=== PATIENT | male | born 1945 | race African-American/Black ===

== ENCOUNTER 2018-03-23 03:59 | Inpatient (IN) | payer MEDICARE ==
[2018-03-18 10:20] VITALS: BP 132/92
[2018-03-18 11:56] LABS: BASO % 0.4 % (0.0-1.0); EOS # 0.1 10*3/uL (0.0-0.4); EOS % 1.1 % (1.0-4.0); HEMATOCRIT 45.5 % (42.0-52.0); HEMOGLOBIN 15.7 g/dl (14.0-18.0); LYMPH # 1.3 10*3/uL (1.3-4.4); MEAN CELL VOLUME 104.1 fl (80.0-94.0); MEAN CORPUSCULAR HGB 35.9 pg (27.0-31.0); MEAN CORPUSCULAR HGB CONC 34.5 g/dl (33.0-37.0); MEAN PLATELET VOLUME 11.2 fl (9.6-12.3); MONO # 0.4 10*3/uL (0.1-1.0); MONO % 9.1 % (3.0-9.0); NEUT # 2.9 10*3/uL (2.3-7.9); PLATELET COUNT AUTOMATED 121 10*3/uL (130-400); RED BLOOD COUNT 4.37 10*6/uL (4.50-5.90); RED CELL DISTRI WIDTH 12.9 % (0-14.5); WHITE BLOOD COUNT 4.7 10*3/uL (4.8-10.8)
[2018-03-18 12:10] LABS: BUN 14 mg/dl (7-24); CHLORIDE 106 mmol/L (98-107); CREATININE 1.05 mg/dL (0.70-1.30); SODIUM 142 mmol/L (136-145)
[2018-03-18 12:16] LABS: ACT PARTIAL THROMBO TIME 31.4 SECONDS (20.8-31.5); INTERNATIONAL NORM RATIO 1.1 (2.0-3.5)
[2018-03-18 15:45] VITALS: BP 105/66
[2018-03-23] VITALS (29 sets, daily range): BP systolic 66–153; BP diastolic 43–105
[~2018-03-23] VITALS: Ht 172.7 cm; Wt 97.0 kg
--- NOTE | ~2018-03-23 | PR ---
[place], [place] PROGRESS NOTE NAME: [id number] UNIT #: [id number] ROOM: 412 DOCTOR: RAMÍREZ ARAUJO MD,DIMITRI BIRTHDATE: [birth year] DOS: 03/28/2018 SUBJECTIVE: The patient was doing well from Pulmonary standpoint, has been noted with abdominal problem and constipation. The x-ray of the abdomen just to determine finding for the patient consistent with ileus. He has not been noted symptoms of fever or chills, coughing or sputum expectoration. OBJECTIVE: VITAL SIGNS: Low-grade fever noted for the patient as 100.5 degree Fahrenheit. Respiratory rate range between 18-20, heart rate 113-108, blood pressure is 121/70-137/74. Pulse oxygen saturation patient recorded as 99% saturation at rest on room air. HEENT: Examination shows head was atraumatic. Eyes nonicterus. NECK: Supple. CARDIOVASCULAR: S1, S2 is audible. LUNGS: The patient was noted without any wheeze or crackles. Moderate obesity. Bowel sounds present. EXTREMITIES: Without any acute edema. IMPRESSION: The patient with ileus with the resolution of the acute respiratory failure progressively, chronic obesity and other medical illnesses. PLAN OF MANAGEMENT: No change in Pulmonary standpoint. The patient continued to do very well at this time. The atrial fibrillation continue to be managed with adjustment in medication per Cardiology Services. Supportive care therapy, plan and management. Ambulation would be encouraged for this patient with physical therapy after the current surgery of the right foot. DIMITRI ELMORE MD CM:PNTRANS [id number] DIMITRI ARAUJO MD 04/07/18 1651 interface
--- NOTE | ~2018-03-23 | CON ---
[place], [place] REPORT OF CONSULTATION NAME: CARLOS LEMOS LOCATED WITHIN [facility] #: [id number] UNIT #: [id number] ROOM: 412 DOCTOR: RAMÍREZ ARAUJO MD,DIMITRI BIRTHDATE: [birth year] DOS: 03/24/2018 PULMONARY CONSULTATION, EVALUATION, MANAGEMENT CONSULTATION REQUESTED BY: Hospitalist services for assessment of acute postoperative hypoxic respiratory failure. REASON FOR CONSULTATION: Pulmonary Critical Care evaluation and management. HISTORY OF PRESENT ILLNESS: The patient was brought to the hospital as an outpatient for the surgical reconstruction of his right foot. The patient was noted significant blood loss. The patient also became hypotensive. Initially, he was treated with LMA, was later intubated and continued to be on the mechanical ventilator. Blood loss was estimated about 900 mL approximately per surgery report. The surgery was completed, otherwise uneventfully. The patient was continued to be on the mechanical ventilator and transferred to Intensive Care Unit, 50% oxygen supplementation with motor mechanical ventilation that were changed for this yesterday by me to assist control, volume control, mechanical ventilation that was continued with oxygen supplementation 40%. The patient has been noted awake at this time receiving Diprivan low dose of 10 mcg per kilogram, body weight. He easily following vocal commands. The patient has any line noted in place in the hypotension. The patient seemed to be resolved with the resuscitative efforts. He has not been noting any excessive secretion production formation from the endotracheal tube and has not been reported any respiratory complication while on mechanical ventilation. Since after surgery and admission to the Intensive Care Unit per nursing. The patient was also noted atrial fibrillation with rapid ventricular response, which has been managed by the Cardiology Services. REVIEW OF SYSTEMS: Could not be completed since the patient is intubated, noted on the mechanical ventilator. PAST MEDICAL HISTORY: Reported: 1. Atrial fibrillation, permanent, longstanding. 2. Type 2 diabetes mellitus. 3. Essential hypertension. 4. Moderate obesity. SOCIAL HISTORY: Reported as the patient was living at home noted with history of drinking of vodka daily. Exact quantity was unknown. Tobacco use was noted in the past, reported a light smoker, smoking a cigarette, but has not been smoking cigarettes at this present time. The tobacco cessation reported several years ago. PAST SURGICAL HISTORY: 1. Noted as amputation of the toe. 2. Pacemaker insertion. FAMILY HISTORY: Both parents , complications of cancer but details were unknown. [place], [place] REPORT OF CONSULTATION NAME: [facility]: [id number] UNIT #: [id number] ROOM: 412 DOCTOR: RAMÍREZ ARAUJO MD,DIMITRI BIRTHDATE: [birth year] MEDICATIONS: From home were listed use of aspirin, folic acid, hydrochlorothiazide, latanoprost eyedrops, Prinivil, metoprolol tartrate, rather succinate, multivitamin, Xarelto 20 mg daily, simvastatin, Aldactone, and thiamine. DRUG ALLERGIES: Noted as no known drug allergies. PHYSICAL EXAMINATION: GENERAL: This is a 73-year-old male patient who has been currently noted to be awake and alert, on the mechanical ventilator in spite of low dose sedation. Following vocal commands. VITAL SIGNS: Height of 5 feet 8 inches, weight of 213 pounds, BMI 32.5. Vital signs which has been recorded showed the temperature noted as normal. Blood pressure noted lowest of 66/43 yesterday, gradual improvement in the hypotension noted. Blood pressure this morning at 8 o'clock noted 127/75. Atrial fibrillation ranging between 89-107. The intake and output in the last 24 hour, intake of 1290, output 1275 mL. Urine output noted area 50 mL. Pulse oxygen saturation noted as 95% on 40% oxygen supplementation. HEAD, EYES, EARS, NOSE, AND THROAT: Chronic obesity. NECK: Supple and obese. CARDIOVASCULAR SYSTEM: S1, S2 is audible. LUNGS: Noted without any wheezing or crackles at the present time. Breaths are noted mildly diminished bilaterally. ABDOMEN: Soft and obese. EXTREMITIES: Without any edema. Currently noted with a large dressing right foot post-surgery. CENTRAL NERVOUS SYSTEM: Does not appear to have any focal deficit. The patient noted awake, follows vocal commands and can move the extremities. MUSCULOSKELETAL: Without any acute deformities unless otherwise listed. VISIBLE SKIN: No lesions or rashes. LABORATORY AND DIAGNOSTIC DATA: CBC outpatient on 03/18/2018, hemoglobin 15, hematocrit of 45. WBC count was noted decreased 4.7 with platelet count mildly low at 4.5 as well. CBC that was done this morning, WBC count was 11.1, hemoglobin 11.6, hematocrit 35.3, platelet count 114,000. BMP that was noted, glucose 148, BUN and creatinine was normal. Calcium reported as low, which is not corrected with the albumin. The arterial blood gas yesterday 1555, however, pH of 7.33, pCO2 of 33, pO2 of 30, 100% oxygen supplementation at that time. The arterial blood gas that was done this morning assist control, volume control, mechanical ventilation with 40% oxygen, pH of 7.37, pCO2 of 31.6, pO2 of 131. Chest x-ray that was done on this admission was reviewed endotracheal tube noted to yesterday in the appropriate position at 4 cm above the lashon level. NG tube were noted in place. The pacemaker noted in place on the left chest as well. Mild elevation of left hemidiaphragm noted discoid atelectasis. There were no pleural effusions. IMPRESSION: 1. The patient is status post surgical intervention with significant volume loss and hypertension resulting in acute postoperative hypoxic respiratory [place], [place] REPORT OF CONSULTATION NAME: CARLOS LEMOS UNIT #: [id number] ROOM: 412 DOCTOR: DIMITRI CROWLEY MD BIRTHDATE: [birth year] failure for nonthoracic surgery. 2. History of nicotine abuse in the past, but there was no diagnosis of COPD and others known previously. 3. Leukopenia. Thrombocytopenia, most likely related to chronic alcohol use. 4. History of chronic alcohol dependence in the form of vodka, however, details were missing at this time. 5. Moderate obesity as well. 6. Atrial fibrillation with rapid ventricular response as well with the chronic anticoagulation, Xarelto in the past, which has been currently noted on hold. PLAN OF MANAGEMENT: The patient has been started on intravenous esmolol drip, controlled tachycardia and an IV heparin therapeutic dose that will be continued. The ventilator bundle management will be started with Protonix. The patient required long-term rather mechanical ventilation more than 48 hours, which I do not expect that. The patient has been started on the CPAP of 5, pressure support of 10 with complete. Discontinue sedation. The current motor mechanical ventilation will continue for about an hour. Arterial blood gases done and potential liberation from mechanical ventilation would occur following that. Continuation of the other plan of management. Monitor hemoglobin and hematocrit. There was no need of blood transfusions. Maximize the management of atrial fibrillation with a current medical management. Monitor for any abnormal bleeding and thrombocytopenia. The patient has been noted thrombocytopenia related to most likely underlying liver disease, which need to be monitored, but there is no intervention would be necessary at this time except close monitoring. Supportive therapy plan and management, care plan of treatment as well. Other additional treatment changes will be made based on progression of his illness. Pulmonary Critical Care Time for this patient was 35 Minutes. Thank you for allowing me to participate in the care of this patient. DIMITRI ELMORE MD CM:CONSTR:REPORT OF CONSULTATION 1115 04/15/18 0934 interface
--- NOTE | ~2018-03-23 | WRIGHTHP ---
[place], [place] PATIENT HISTORY AND PHYSICAL EXAM NAME: CARLOS LEMOS [facility] #: [id number] UNIT #: [id number] ROOM: [facility] DOCTOR: DISHA ZABALA DPM BIRTHDATE: [birth year] DOS: 03/23/2018 OPERATIVE REPORT SURGEON: Disha Zabala DPM ASSISTANTS: Dr. Catalino Wade, Fellow; Dr. Karley Aceves, PGY3; Andrew Hagan, PGY1. PREOPERATIVE DIAGNOSES: 1. Ankle joint contracture. 2. Equinus. 3. Calcaneal valgus. 4. Posterior tibial tendon dysfunction. 5. Unstable midtarsal joint. 6. Osteoarthritis of the midfoot. 7. Talonavicular joint subluxation, dislocation. 8. Hallux valgus deformity. All on the right. POSTOPERATIVE DIAGNOSES: 1. Ankle joint contracture. 2. Equinus. 3. Calcaneal valgus. 4. Posterior tibial tendon dysfunction. 5. Unstable midtarsal joint. 6. Osteoarthritis of the midfoot. 7. Talonavicular joint subluxation, dislocation. 8. Hallux valgus deformity. All on the right. PROCEDURE: 1. Gastrocnemius recession. 2. Percutaneous calcaneal displacement osteotomy slid medially. 3. Ledezma calcaneal lengthening osteotomy. 4. Talonavicular joint fusion. 5. Navicular cuneiform joint fusion. 6. Lapidus bunionectomy of the right foot. PROCEDURE IN DETAIL: The patient was seen in preop holding area and appropriate site marking was performed. He concurred with the preoperative management as well as the site marking and agreed with the treatment protocol. He was brought in the OR and placed on a well-padded OR table. Prior to this, he was given a block by Anesthesia in the preop holding area. Once he was on the OR table, his right leg was prepped and draped in sterile fashion, midthigh tourniquet inflated to 250 mmHg. Appropriate time-out was performed and everybody in the OR concurred. Anesthesia with achieved in the operating room. A time-out was performed in the operating room and everybody concurred. At this point in time, the right leg was prepped in the usual sterile fashion. [place], [place] PATIENT HISTORY AND PHYSICAL EXAM NAME: CARLOS LEMOS [facility] #: [id number] UNIT #: [id number] ROOM: [facility] DOCTOR: DISHA ZABALA DPM BIRTHDATE: [birth year] PROCEDURE: 1. GASTROCNEMIUS RECESSION: Attention was directed to the medial aspect of the posterior muscle group where an incision was made over the gastroc aponeurosis. This was deepened in the same plane using sharp and blunt dissection avoiding the neurovascular structures, getting down to the deep tissue. At this time, all of the soft tissues were retracted. Sural nerve was retracted and only the gastroc aponeurosis identified. At this time, a Delbert procedure was performed with increased range of motion of the ankle joint. Deep tissues were closed with 0 Vicryl and skin was closed with 2-0 nylon. 2. PERCUTANEOUS CALCANEAL DISPLACEMENT OSTEOTOMY, RIGHT: A small stab incision made at the inferior medial border of the calcaneus and a blunt dissection performed subperiosteal, subfascial along the medial wall of the calcaneus underneath the neurovascular structures deep and at this point and the superior medial border of the calcaneus. A stab incision was made and a from superior medial to inferior medial. Next, a straight hemostat was used on the superior aspect of the calcaneus directed across superior aspect of the calcaneus and anterior to Achilles tendon and posterior neurovascular bundle, tented the skin laterally avoiding the sural nerve and the peroneal tendon. The stab incision was made. A straight hemostat was retracted out of the medial aspect and was inserted from lateral to medial. At this point in time, the hemostat grabbed the Gigli saw from the superior medial and directed across superolaterally. Next, a stab incision was made adjacent to the inferior medial just about the inferior border of the calcaneus and at this time, the Gigli saw was retrieved from this anterior lateral to the superior lateral and this was pulled through subfascial dissection. Next, under fluoroscopy guidance, alignment of the Gigli saw was made and a percutaneous calcaneal osteotomy was made. The wires were cut and at this point in time, the posterior tuber was slid medially approximately 1 cm, so temporarily fixated with large guidewires and this was fixated with a [place] 6.5 partially threaded screw with good compression across the superior aspect of the calcaneal osteotomy. Next, a guidewire was put into the Ledezma site. This was retracted posteriorly approximately 1.5 cm proximal to the calcaneocuboid joint. At this time, an incision was made incision deepened in the same plane with sharp edges are going over the anterolateral process of the calcaneus. The sural nerve was retracted as well as the peroneal tendons. Only the lateral wall of the calcaneus was exposed. At this time, the Ledezma calcaneal osteotomy was made. This was finished off with a normal steel mallet and this opened the site prepared for graft, measured approximately 1.3 cm of graft was needed and the iliac crest graft that was fashioned in a tricortical fashion. This was packed tightly to distract out the lateral column. It was not in adductus. It was in neutral position and stabilized the lateral column. At this time, a [employer] guidewire was inserted from inferior calcaneus intramedullary through the graft into the distal portion of the calcaneus. At this time, a fully threaded screw was inserted into the lateral wall of the intramedullary bone of the lateral calcaneus. This was checked and the calcaneal inclination angle improved as well as position of the foot and the screw was intramedullary and this was checked under fluoroscopy. At this time, the deep tissues were closed with 0 Vicryl and skin using 2-0 nylon. 3. TALONAVICULAR JOINT ARTHRODESIS: At this time, attention was directed to the talonavicular joint. It was deepened in the same plane using [facility] and [place], [place] PATIENT HISTORY AND PHYSICAL EXAM [id number] #: [id number] ROOM: [facility] DOCTOR: DISHA ZABALA DPM BIRTHDATE: [birth year] blunt dissection avoiding the neurovascular structures. At this point in time, it was deepened in a same plane and all soft tissue retracted off the talonavicular joint. The talonavicular joint was dislocated. At this point in time, the articular surface of the talus was taken down, osteotomes, mallets and curettes were used to resect the articular surface. Also, the navicular was taken down in the proximal portion using osteotomes, mallets, curettes, drills preparing the joint for fusion. This was temporarily fixated, and noted to be in much better anatomic alignment and subtalar joint much healthier at this point in time. There was gross instability of navicular cuneiform joint with gross osteoarthritis throughout this area. At this point in time, attention was directed to the navicular cuneiform joint where this joint was taken down, significant amount of time was spent preparing the joint for fusion. The articular surface was taken down navicular cuneiform with drills, curettes. This was temporarily fixated too at this point in time. At this point of time, a 6.5 [place] partially threaded screw was inserted from the cuneiform to the talus getting a good compression along the medial column. Next, independent screws were put into the area also with more stability. The patient had a hallux valgus as well. 4. LAPIDUS BUNIONECTOMY: Attention was directed to the tarsometatarsal joint where incision was made distally over the TMT-1. The articular surfaces and ligaments were taken down and osteotome, mallets and drills were used to prepare the joint at the TMT-1 joint. The medial wall of the second metatarsal was taken down as well as the cancellous bone exposed at the TMT-1. This was temporarily fixated for TMT-1 and at this point in time, a 3.5 solid cortical screw was put in from the distal first metatarsal to the cuneiform into the navicular. Next, another screw was put in from inferior first metatarsal across the joint and into the more proximal portion of the medial column as well. At this point in time, a fibular plate was used with a combination of lag and locking screws. At 2 hours, the tourniquet was dropped. Good bleeding was noted throughout the area and stabilized. At this point in time, a multiple hole plate was inserted with locking and nonlocking screws in the talus down to the first metatarsal and screws were put across as far laterally as possible given his great instability, the patient is neuropathic, diabetic and almost like a Charcot type of patient. Bone was bridged across along the base of metatarsals along the mid foot and along the talus. At this point in time, allogenic bone was packed as shear, strain, relief graft at the talonavicular joint, the navicular cuneiform joint and at the tarsometatarsal joint. At this time, the patient started having some cardiac issues, Anesthesia was concerned he was having decreased pressures as well as a myocardial infarction. He is being managed and at this point in time we were done with the procedure and deep tissues were closed using 0 Vicryl and skin was closed with 2-0 nylon. Surgical wounds were dressed with Betadine-soaked Adaptic, 4x4s, Livia in a sterile compression fashion. A Vizcaino compressive univalve BK cast was applied to the right lower extremity, this was univalve and spread apart and he tolerated the procedure and anesthesia well. He was stabilized and the patient went to the Intensive Care Unit per Anesthesia and Medicine request. [place], [place] PATIENT HISTORY AND PHYSICAL EXAM [facility]: [facility] [id number] #: [id number] ROOM: [facility] DOCTOR: DISHA ZABALA DPM BIRTHDATE: [birth year] DISHA ZABALA DPM CM:HISPHYS:PATIENT HISTORY AND PHYSICAL EXAMINATION 55 013 DISHA ZABALA DPM 03/24/18 1340 EDMOND [email or web address]
--- NOTE | ~2018-03-23 | PR ---
[place], [place] PROGRESS NOTE NAME: [facility] [id number] UNIT #: [id number] ROOM: 412 DOCTOR: RAMÍREZ ARAUJO MD,DIMITRI BIRTHDATE: [birth year] DOS: 03/26/2018 SUBJECTIVE: The patient was noted comfortable at this time, resting on the bed without any acute respiratory problem, shortness of breath, coughing, or sputum expectoration. OBJECTIVE: VITAL SIGNS: Normal temperature, respiratory rate 20, heart rate 103, blood pressure 126/78. Pulse oxygen saturation on room air 96% saturation. HEAD, EYES, EARS, NOSE, AND THROAT: Examination shows chronic obesity. NECK: Supple. CARDIOVASCULAR: S1, S2 audible. LUNGS: Clear. ABDOMEN: Soft, nontender. EXTREMITIES: No new changes. IMPRESSION: Progressive resolution of the acute respiratory failure. Mild tachycardia. Chronic obesity. Status post surgery of the right foot as well. PLAN OF MANAGEMENT: No changes in plan of care from pulmonary standpoint whenever necessary the patient could be discharged home pulmonary standpoint. Outpatient assessment might need to be done. Assess for possibility of obstructive sleep apnea disorder. DIMITRI ELMORE MD CM:PNTRANS [id number] DIMITRI ARAUJO MD 03/26/18 1619 interface
--- NOTE | ~2018-03-23 | EKG ---
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
--- NOTE | ~2018-03-23 | PR ---
[place], [place] PROGRESS NOTE NAME: CARLOS LEMOS [facility] #: [id number] UNIT #: [id number] ROOM: 412 DOCTOR: RAMÍREZ ARAUJO MD,DIMITRI BIRTHDATE: [birth year] DOS: 03/29/2018 PULMONARY PROGRESS NOTE SUBJECTIVE: The patient was independently seen and examined in [id number]-ze-[id number] encounter, history was confirmed. Physical examination was performed. All the labs were reviewed. The note done by the adjunct faculty for medical terminology was approved. The patient remains comfortable at this time, sitting on the chair. He has not been reporting any symptoms of coughing, chest pain, fever, or chills. Low-grade fever was noted at midnight as 100.4 degree Fahrenheit. His previous cultures of the wound noted negative. He has not been identified any other new infection. The patient denies symptoms of chest pain. PHYSICAL EXAMINATION: VITAL SIGNS: Blood pressure of 124/74, respiratory rate of 20, heart rate of 94-84, and the temperature of noted from 100.4 degree Fahrenheit to normal temperature. HEENT: Examination shows head was atraumatic. Eyes nonicterus. NECK: Supple. CARDIOVASCULAR: S1, S2 is audible. LUNGS: The patient was noted without any wheezing or crackles. ABDOMEN: Soft, nontender, bowel sounds present. EXTREMITIES: Without any acute edema. IMPRESSION: Low-grade fever, etiology unclear, stable respiratory status without any acute respiratory complaints at this time, does not require any oxygen supplementation, improvement of the respiratory failure. PLAN OF MANAGEMENT: No changes in the plan of care at this time. Pulmonary sign of the patient at this time. PT consult in case of any respiratory problem occurred till discharge. DIMITRI ELMORE MD CM:PNTRANS [id number] DIMITRI ARAUJO MD 03/29/182331 interface
--- NOTE | ~2018-03-23 | EKG ---
[place], [place] ELECTROCARDIOGRAM REPORT NAME: CARLOS LEMOS UNIT #: [id number] ROOM: [facility] DOCTOR: SOFIE DRAFT REPORT BIRTHDATE: [birth year] [facility] Test Date: 2018-03-23 Test Time: 21:44:55 Pat Name: CARLOS LEMOS Department: Room: 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 Electronically Signed On 03-24-2018 7:55:18 PST by Eyal Kirk MD CM:EKGRPT:ELECTROCARDIOGRAM REPORT [id number] ARSENIO SANTANA DRAFT REPORT ARSENIO ARAGON DO
--- NOTE | ~2018-03-23 | PR ---
[place], [place] PROGRESS NOTE [id number] UNIT #: [id number] ROOM: 412 DOCTOR: RAMÍREZ ARAUJO MD,DIMITRI BIRTHDATE: [birth year] DOS: 03/25/2018 SUBJECTIVE: The patient was liberated from mechanical ventilator yesterday successfully noted comfortable this morning, sitting on the chair, starting oral diet, which has been tolerated. Denies symptoms of fever or chills. Denies symptoms of chest pain, hemoptysis or abdominal pain. The cultures of the wound of the foot noted light growth of yeast. Denies symptoms of headache or diplopia or dysphagia. Remaining systems were reviewed. They were noted all negative. PHYSICAL EXAMINATION: VITAL SIGNS: For the patient which has been recorded showed normal temperature, respiratory rate of 21, heart rate of 82-100, blood pressure 144/80 110/70. Pulse oxygen saturation recorded as 100% on room air. HEAD, EYES, EARS, NOSE, AND THROAT: Head was atraumatic. Eyes nonicterus. NECK: Supple. CARDIOVASCULAR SYSTEM: S1, S2 is audible. LUNGS: Noted without any wheezing or crackles. ABDOMEN: Soft, nontender. Bowel sounds present. EXTREMITIES: Noted without any acute edema. MUSCULOSKELETAL: No acute deformities current surgery of the right foot with Charcot foot, which has been currently covered with a dressing. LABORATORY DATA: CBC this morning: WBC count normal, hemoglobin 10.1, hematocrit 29.7, platelet count was noted as 84,000. BMP this morning, glucose 130, BUN normal, creatinine was normal. IMPRESSION: 1. Status post surgery for the Charcot with acute respiratory failure with excessive Rob loss. Hemoglobin 10.1 today. 2. Chronic obesity as well. 3. Mild thrombocytopenia, without any abnormal blood loss. The etiology thrombocytopenia was not noted very clear, may be related to the medications side effects or other reasons. PLAN OF MANAGEMENT: Pulse oxygen saturation will be monitored. Titrate off the oxygen supplementation with improvement in oxygen saturation. Incentive spirometry. Other therapy, plan and management in progress will be continued. Usual care with additional treatment changes will be recommended based on the progression of the illness. The patient could be transferred from the intensive care unit to the telemetry floor. [place], [place] PROGRESS NOTE NAME: CARLOS LEMOS UNIT #: [id number] ROOM: [facility] DOCTOR: DIMITRI CROWLEY MD BIRTHDATE: [birth year] DIMITRI ELMORE MD CM:PNTRANS [id number] DIMITRI ARAUJO MD 04/15/18 0935 interface
--- NOTE | ~2018-03-23 | PR ---
[place], [place] PROGRESS NOTE NAME: CARLOS LEMOS [facility] #: [id number] UNIT #: [id number] ROOM: 412 DOCTOR: MINERVA FREED DPM BIRTHDATE: [birth year] DOS: 03/26/2018 SUBJECTIVE: The patient is seen for followup of post-surgical reconstruction, right lower extremity. The patient feels much improved today, is resting comfortably in bed without any distress or acute pain. OBJECTIVE: The lower extremity cast and dressing intact without breakthrough bleeding or complication. ASSESSMENT: Postop right lower extremity. PLAN: Continue same orders and we will recheck with the patient tomorrow. MINERVA FREED DPM CM:PNTRANS [id number] MINERVA FREED DPM 04/18/18 0718 interface
--- NOTE | ~2018-03-23 | WRIGHTHP ---
[place], [place] PATIENT HISTORY AND PHYSICAL EXAM NAME: CARLOS LEMOS [facility] #: [id number] UNIT #: [id number] ROOM: 412 DOCTOR: DSIHA ZABALA DPM BIRTHDATE: [birth year] DOS: 03/23/2018 INDICATION NOTE: The patient is a gentleman who is seen for a chronic diabetic ulcer of his right midfoot secondary to significant malalignment and deformity of his right hindfoot and ankle. He has been treated and got the wound healed; however, it keeps breaking down. Surgically, the patient needs surgery, otherwise he will continue at a large risk for a big infection. He has had cardiac clearance and he also had primary care clearance as well. He presents today to the hospital. He signed the consent, understood the preoperative and postoperative management. He also understood the perioperative management, getting back on his Xarelto and baby aspirin per Cardiology. He is going to be able to do that today per the stitchdown toe former. He understood the pros, cons, risks, benefits, over correction and risk of recurrence, numbness, infection, nonunion, delayed union, malunion, DVT, PE, limb loss, vascular, neurological or vein injury to the lower extremity, he understands possible DVT, PE, cardiovascular incident. The patient has significant cardiovascular issues. With this in mind, he agreed, understands and consents, pros, cons, risks and benefits. He also understands the perioperative management. The patient also says he is concerned about his gait instability and asked if we could possibly get him some assistance with that which we totally would, do our best to get it based on how he is able to manage and recover. We this in mind, he has agreed with the consent, agreed with the site marking. DISHA ZABALA DPM CM:HISPHYS:PATIENT HISTORY AND PHYSICAL EXAMINATION 55 [phone] DISHA ZABALA DPM 04/07/18 0753 interface
--- NOTE | ~2018-03-23 | PR ---
[place], [place] PROGRESS NOTE NAME: CARLOS LEMOS UNIT #: [id number] ROOM: 412 DOCTOR: JAMIE ALBA MD BIRTHDATE: [birth year] DOS: 03/31/2018 CARDIOLOGY FOLLOWUP VISIT NOTE REASON FOR VISIT: The patient with atrial fibrillation, rapid ventricular rate. HISTORY OF PRESENT ILLNESS: The patient is feeling better. Denies any chest pain, shortness of breath. No palpitation, no dizziness. No orthopnea or PND. His metoprolol was increased yesterday. REVIEW OF SYSTEMS: Review of the 8 systems negative except as mentioned above. RHYTHM STRIPS: The patient is in atrial fibrillation with mostly controlled ventricular rate. PHYSICAL EXAMINATION: VITAL SIGNS: Blood pressure 118/76, pulse was 88, respiratory rate 20. Weight 99 kilos, BMI 32.5. GENERAL: Alert, comfortable, in no acute distress. HEAD AND NECK: Neck is supple. No distended neck veins, no carotid bruit. CHEST: Symmetrical, nontender. LUNGS: Clear to auscultation bilaterally. HEART: Irregularly irregular, grade 1/6 systolic murmur. ABDOMEN: Benign, nontender, obese. EXTREMITIES: Showed right leg in cast. Left leg showed trace edema. Distal pulses palpable. SKIN: Warm and dry. RECTAL: Deferred. GENITOURINARY: Deferred. MEDICATIONS AND ALLERGIES: Reviewed. IMPRESSION: 1. Atrial fibrillation with rapid ventricular rate, currently rate is stable. 2. Hypertension, stable. 3. Chronic anemia. 4. Chronic thrombocytopenia. 5. Non-morbid obesity. 6. Recently right leg surgery. RECOMMENDATIONS: 1. Continue current medications. 2. ____ increase the digoxin ____ 0.125 to 0.25 mg. 3. There is no family at bedside at the time of examination. 4. Possible discharge soon. [place], [place] PROGRESS NOTE NAME: CARLOS LEMOS [place] UNIT #: [id number] ROOM: 412 DOCTOR: JAMIE ALBA MD BIRTHDATE: [birth year] JAMIE ALBA MD CM:PNTRANS [id number] JAMIE ALBA MD 04/01/18 1040 interface
--- NOTE | ~2018-03-23 | PR ---
[place], [place] PROGRESS NOTE NAME: CARLOS LEMOS UNIT #: [id number] ROOM: 412 DOCTOR: GIANCARLO HOYT DO BIRTHDATE: [birth year] DOS: 03/29/2018 SUBJECTIVE: The patient was seen and evaluated on the general medical floor. From a Pulmonology standpoint, the patient denies any changes or complaints at this time. The patient notes that the cardiologists are adjusting his medications at this time. Otherwise, the patient does not have any complaints. OBJECTIVE: VITAL SIGNS: Temperature 98.3, pulse 94, respiratory rate 20, blood pressure 124/74, pulse ox 97% on room air. GENERAL: The patient is alert and oriented x 3. No signs of distress. HEENT: Atraumatic, normocephalic. EYES: PERRLA. No icterus. No lesions. NECK: Supple. CARDIOVASCULAR: Regular rate. No murmurs, rubs, gallops. LUNGS: Clear to auscultation bilaterally. ABDOMEN: Soft, nontender. Bowel sounds present. EXTREMITIES: Without acute edema. NEUROLOGIC: No neurological deficits, grossly intact. IMPRESSION: The patient has a resolving ileus with acute respiratory failure, which has resolved at this time. PLAN OF MANAGEMENT: No change in patient's medications from a Pulmonology standpoint. Continue adjustment of medications per Cardiology. Supportive care, plan of management. Giancarlo Hoyt, DIMITRI ELMORE MD CM:SALVADOR [id number] GIANCARLO HOYT DO 03/30/18 1115 interface
--- NOTE | ~2018-03-23 | PR ---
[place], [place] PROGRESS NOTE [id number] UNIT #: [id number] ROOM: 412 DOCTOR: RAMÍREZ ARAUJO MD,DIMITRI BIRTHDATE: [birth year] DOS: 03/27/2018 PULMONARY PROGRESS NOTE SUBJECTIVE: The patient is noted comfortable, resting on the bed this morning. Has not been reported with any symptoms of fever or chills. Denies symptoms of nausea or vomiting. OBJECTIVE: VITAL SIGNS: Which have been recorded show the temperature noted as normal, respiratory rate 20, heart rate 91, blood pressure 122/72, pulse ox saturation normal on room air at 95% saturation. HEENT: Head was atraumatic. Eyes nonicterus. NECK: Supple. CARDIOVASCULAR: S1, S2 is audible. LUNGS: Noted without any wheeze or crackles. ABDOMEN: Soft, nontender. Bowel sounds present. EXTREMITIES: Without any acute edema. IMPRESSION: Stable respiratory status is noted at the present time with resolution of acute respiratory failure. There are no symptoms of coughing, wheezing, or any signs of acute infection. ADDENDUM PLAN: The plan for this patient is to continue maximal medical management for the rapid ventricular response, currently receiving the digoxin. The patient does not require any oxygen supplementation and noted comfortable at this time, would not require any other changes in the treatment. DIMITRI ELMORE MD CM:PNTRANS 1304 1559 DIMITRI ARAUJO MD 04/07/18 165 interface
--- NOTE | ~2018-03-23 | EKG ---
[place], [place] ELECTROCARDIOGRAM REPORT NAME: CARLOS LEMOS UNIT #: [id number] ROOM: [facility] DOCTOR: SOFIE DRAFT REPORT BIRTHDATE: [birth year] [facility] Test Date: 2018-03-23 Test Time: 19:26:00 Pat Name: CARLOS LEMOS Department: Room: [place] [address] Gender: M Compliance Assistant: : 1945 Requested By: ARSENIO ARAGON Order Number: [id number] Reading MD: Eyal Kirk MD Measurements Intervals [place] Rate: 125 P: [place]: QRS: 27 QRSD: 107 T: 209 QT: 336 QTc: 485 Interpretive Statements Atrial fibrillation Low voltage, extremity leads Repol abnrm suggests ischemia, anterolateral Compared to ECG 03/23/2018 15:43:[address]-T wave changes have improved Electronically Signed On 03-24-2018 7:47:11 PST by Eyal Kirk MD CM:EKGRPT:ELECTROCARDIOGRAM REPORT [id number] ARSENIO SANTANA DRAFT REPORT ARSENIO ARAGON DO
--- NOTE | ~2018-03-23 | EKG ---
[place], [place] ELECTROCARDIOGRAM REPORT NAME: CARLOS LEMOS UNIT #: [id number] ROOM: [facility] DOCTOR: SOFIE DRAFT REPORT BIRTHDATE: [birth year] [facility] Test Date: 2018-03-23 Test Time: 15:43:35 Pat Name: CARLOS LEMOS Department: Room: [place] [address] Gender: M Ager Tender: CRISTIAN : 1945 Requested By: ARSENIO ARAGON Order Number: [id number] Reading MD: Measurements Intervals [place] Rate: 113 P: [place]: QRS: 55 QRSD: 81 T: 245 QT: 336 QTc: 461 Interpretive Statements Atrial fibrillation Ventricular premature complex Repol abnrm suggests ischemia, diffuse leads Compared to ECG 03/18/2018 11:30:58 Ventricular premature complex(es) now present Possible ischemia now present Ventricular-paced complex(es) or rhythm no longer present CM:EKGRPT:ELECTROCARDIOGRAM REPORT [id number] ARSENIO SANTANA DRAFT REPORT ARSENIO ARAGON DO
--- NOTE | ~2018-03-23 | PR ---
[place], [place] PROGRESS NOTE NAME: CARLOS LEMOS UNIT #: [id number] ROOM: 412 DOCTOR: JAMIE ALBA MD BIRTHDATE: [birth year] DOS: 03/27/2018 REASON FOR VISIT: Diastolic heart failure and atrial fibrillation with rapid ventricular rate. SUBJECTIVE: The patient is feeling better. Denies any chest pain, shortness of breath. No palpitation. No dizziness. No edema. No orthopnea. His main complaint is constipation today. He is going for a KUB. RHYTHM STRIPS: The patient is atrial fibrillation with occasional rapid ventricular rate with activity. OBJECTIVE: VITAL SIGNS: Blood pressure 136/62, pulse 102, respiratory rate 20, weight 97 kilos, BMI 32.5. GENERAL: Alert, comfortable, in no acute distress. NECK: Supple. No distended neck veins. No carotid bruit. CHEST: Symmetrical, nontender. LUNGS: Clear to auscultation bilaterally. HEART: Irregularly irregular, grade 1/6 systolic murmur. ABDOMEN: Bowel sounds normal. EXTREMITIES: Left leg with trace edema, right leg was in cast. SKIN: Warm and dry. NEUROLOGIC: The patient is alert, oriented. No focal neurological deficit. RECTAL: Deferred. MEDICATIONS: Reviewed. LABORATORY DATA: Reviewed. IMPRESSION: 1. Atrial fibrillation with occasional rapid ventricular rate. 2. Status post pacemaker. 3. Chronic diastolic heart failure. 4. Anemia. 5. Thrombocytopenia. 6. Constipation. 7. Recent right leg surgery. RECOMMENDATIONS: 1. Increase metoprolol to 25 mg 3 times a day and watch his blood pressure and heart rates. 2. Continue rest of the medications. 3. Continue Xarelto for anticoagulation and monitor hemoglobin and platelets. 4. There is no family at bedside at the time of my examination. [place], [place] PROGRESS NOTE NAME: CARLOS LEMOS UNIT #: [id number] ROOM: 412 DOCTOR: JAMIE ALBA MD BIRTHDATE: [birth year] JAMIE ALBA MD CM:PNTRANS 1705 42 JAMIE ALBA MD 03/27/181842 interface
--- NOTE | ~2018-03-23 | PR ---
[place], [place] PROGRESS NOTE NAME: CARLOS LEMOS UNIT #: [id number] ROOM: 412 DOCTOR: JAMIE ALBA MD BIRTHDATE: [birth year] DOS: 04/01/2018 CARDIOLOGY FOLLOWUP NOTE REASON FOR VISIT: Atrial fibrillation, ____. HISTORY OF PRESENT ILLNESS: The patient is feeling better. Denies any chest pain or shortness of breath. No palpitation or dizziness. He is anticipating discharge today. REVIEW OF SYSTEMS: Review of the 8 systems negative except as mentioned above. RHYTHM STRIPS: The patient has atrial fibrillation with a controlled ventricular rate. PHYSICAL EXAMINATION: VITAL SIGNS: Blood pressure 112/64, pulse 88, respiratory rate 18. GENERAL: Alert, comfortable, in no acute distress. HEAD AND NECK: Neck is supple, no distended neck veins, no carotid bruit. CHEST: Symmetrical, nontender. LUNGS: Clear to auscultation bilaterally. HEART: Irregularly irregular, no S3, no palpable thrills. ABDOMEN: Benign, nontender. Bowel sounds normal. EXTREMITIES: Show left leg trace edema. Right leg was in a cast. SKIN: Warm and dry. NEUROLOGIC: The patient is alert, oriented. No focal neurologic deficit. RECTAL: Deferred. MEDICATIONS AND LABORATORY DATA: Reviewed. IMPRESSION: 1. Atrial fibrillation, currently controlled ventricular rates. 2. Hypertension, stable. 3. Anemia. 4. Thrombocytopenia. 5. Right leg surgery. 6. Morbid obesity. RECOMMENDATIONS: 1. Continue current medications. 2. He is anticipating discharge home today. 3. He will follow up with his hvac tech in [facility]. 4. His heart rate and blood pressure is stable, and the patient was on appropriate anticoagulation. [place], [place] PROGRESS NOTE NAME: CARLOS LEMOS UNIT #: [id number] ROOM: 412 DOCTOR: JAMIE ALBA MD BIRTHDATE: [birth year] JAMIE ALBA MD CM:PNTRANS 06 [phone] JAMIE ALBA MD 04/02/18 1728 interface
--- NOTE | ~2018-03-23 | PR ---
[place], [place] PROGRESS NOTE NAME: CARLOS LEMOS UNIT #: [id number] ROOM: 412 DOCTOR: JAMIE ALBA MD BIRTHDATE: [birth year] DOS: 03/26/2018 CARDIOLOGY FOLLOWUP VISIT NOTE REASON FOR VISIT: Diastolic heart failure and paroxysmal atrial fibrillation. HISTORY OF PRESENT ILLNESS: The patient is feeling better. Denies any chest pain or shortness of breath, no palpitations, no dizziness, no PND, no orthopnea. MEDICATIONS AND ALLERGIES: Reviewed. REVIEW OF SYSTEMS: Review of the 8 systems negative except as mentioned above. RHYTHM STRIPS: The patient with atrial fibrillation with occasional ventricular pacing. PHYSICAL EXAMINATION: VITAL SIGNS: Blood pressure 126/78, pulse 98, and respiratory rate 20. GENERAL: Alert, comfortable, in no acute distress. NECK: Supple, no distended neck veins, no carotid bruit. CHEST: Symmetrical, nontender. LUNGS: Clear to auscultation bilaterally. HEART: Irregularly irregular. Grade 1/6 systolic murmur. ABDOMEN: Benign. Bowel sounds normal. EXTREMITIES: The right leg was in dressing and a splint, left leg has trace edema. Distal pulses are fair. NEUROLOGIC: The patient is alert, oriented. No focal neurologic deficit. RECTAL: Deferred. GENITOURINARY: Deferred. LABORATORY DATA: Hemoglobin 9.4, platelets 85,000. IMPRESSION: 1. Paroxysmal atrial fibrillation. 2. Status post pacemaker. 3. Diastolic heart failure. 4. Diabetes type 2. 5. Anemia. 6. Thrombocytopenia. RECOMMENDATIONS: 1. Blood pressure and heart rate are stable. 2. Continue Xarelto. 3. Monitor his hemoglobins and platelet count. There is no family at the bedside at the time of examination. [place], [place] PROGRESS NOTE NAME: CARLOS LEMOS UNIT #: [id number] ROOM: 412 DOCTOR: JAMIE ALBA MD BIRTHDATE: [birth year] JAMIE ALBA MD CM:PNTRANS 31 JAMIE ALBA MD 03/27/18 0931 interface
--- NOTE | ~2018-03-23 | WRIGHTHP ---
[place], [place] PATIENT HISTORY AND PHYSICAL EXAM NAME: CARLOS LEMOS [facility] #: [id number] UNIT #: [id number] ROOM: 412 DOCTOR: DISHA ZABALA DPM BIRTHDATE: [birth year] DOS: 03/23/2018 LOWER EXTREMITY PHYSICAL EXAMINATION VASCULAR: He has had noninvasive vascular studies done demonstrating good perfusion of his right lower extremity. NEUROLOGIC: He has a lack of protective sensations secondary to diabetic peripheral neuropathy. DERMATOLOGICAL: He has no full thickness open. He has an abrasion from his previous talar ulceration. It is approximately 3 cm in diameter. There is no full thickness ulceration that is superficial in nature. 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 He has gross instability of the hindfoot. He has gross instability of the lateral column. He has abduction and gross instability laterally of his midfoot and forefoot on his hindfoot. He has a significant forefoot varus as well. Gross instability throughout the whole medial column. There is a subluxation, dislocation of talonavicular joint of the left. ORTHOPEDIC: He has osteoarthritis of the midfoot. He has calcaneal valgus. He has unstable metatarsal joint. He has subluxation, dislocation of the talonavicular joint. He has a hallux valgus forming on the right. DISHA ZABALA DPM CM:HISPHYS:PATIENT HISTORY AND PHYSICAL EXAMINATION 55 0046 DISHA ZABALA DPM 04/07/18 0752 interface
[~2018-03-23 03:59] MED LIST: ALDACTONE25 M1 PO; ASPIRIN81 M1 PO; B-1100 M1 PO; HYDR25T PO; LATANOPROST2.5 ML OU; Lopressor25 MG PO; MULTIVITAMINS1 EAC5 PO; NATURE'S BLEND F1 MG PO; PRINIVIL20 M1 PO; SIMVASTATIN10 MG PO; XARE20MG PO
[2018-03-23 16:09] LABS: BASO % 0.4 % (0.0-1.0); EOS % 0.1 % (1.0-4.0); HEMATOCRIT 36.4 % (42.0-52.0); HEMOGLOBIN 12.3 g/dl (14.0-18.0); LYMPH # 0.9 10*3/uL (1.3-4.4); LYMPH % 9.4 % (27.0-41.0); MEAN CELL VOLUME 105.2 fl (80.0-94.0); MEAN CORPUSCULAR HGB 35.5 pg (27.0-31.0); MEAN CORPUSCULAR HGB CONC 33.8 g/dl (33.0-37.0); MEAN PLATELET VOLUME 10.9 fl (9.6-12.3); MONO # 0.2 10*3/uL (0.1-1.0); MONO % 1.7 % (3.0-9.0); NEUT # 8.1 10*3/uL (2.3-7.9); PLATELET COUNT AUTOMATED 129 10*3/uL (130-400); RED BLOOD COUNT 3.46 10*6/uL (4.50-5.90); RED CELL DISTRI WIDTH 13.5 % (0-14.5); WHITE BLOOD COUNT 9.2 10*3/uL (4.8-10.8)
[2018-03-23 16:17] LABS: ABG HCO3 17.9 mmol/l (22-26); ABG O2 SATURATION 99.9 % (95-97); ARTERIAL BLOOD GAS PCO2 33.8 mmHg (35-45); ARTERIAL BLOOD GAS PH 7.335 (7.35-7.45)
[2018-03-23 16:19] LABS: ABG BASE EXCESS -7.1 mmol/L (-2.0-2.0)
[2018-03-23 16:25] LABS: ALBUMIN 2.5 gm/dl (3.1-4.5); ALKALINE PHOSPHATASE 100 U/L (45-117); BUN 12 mg/dl (7-24); CHLORIDE 115 mmol/L (98-107); CREATININE 0.85 mg/dL (0.70-1.30); POTASSIUM 4.3 mmol/L (3.5-5.1); SGOT/AST 20 IU/L (3-35); SGPT/ALT 18 U/L (12-78); SODIUM 145 mmol/L (136-145); TOTAL PROTEIN 5.2 gm/dL (6.4-8.2)
[2018-03-23 19:00] LABS: HEMATOCRIT 36.7 % (42.0-52.0)
[2018-03-24] VITALS (8 sets, daily range): BP systolic 108–147; BP diastolic 64–92
[2018-03-24 05:52] LABS: BUN 14 mg/dl (7-24); CHLORIDE 115 mmol/L (98-107); CREATININE 0.92 mg/dL (0.70-1.30); POTASSIUM 4.6 mmol/L (3.5-5.1); SODIUM 145 mmol/L (136-145)
[2018-03-24 05:55] LABS: HEMATOCRIT 35.3 % (42.0-52.0); HEMOGLOBIN 11.6 g/dl (14.0-18.0); MEAN CELL VOLUME 106.3 fl (80.0-94.0); MEAN CORPUSCULAR HGB 34.9 pg (27.0-31.0); MEAN CORPUSCULAR HGB CONC 32.9 g/dl (33.0-37.0); MEAN PLATELET VOLUME 11.6 fl (9.6-12.3); PLATELET COUNT AUTOMATED 114 10*3/uL (130-400); RED BLOOD COUNT 3.32 10*6/uL (4.50-5.90); RED CELL DISTRI WIDTH 13.5 % (0-14.5); WHITE BLOOD COUNT 11.1 10*3/uL (4.8-10.8)
[2018-03-24 05:56] LABS: CHOLESTEROL 102 mg/dL (<200); FREE T4 0.96 ng/dl (0.76-1.46); HDL CHOLESTEROL 60 mg/dl (40-60); LDL CHOLESTEROL 29 mg/dL (9-159); PHOSPHOROUS 3.6 mg/dL (2.5-4.9); TRIGLYCERIDES 65 mg/dl (<150); VLDL CHOLESTEROL 13 mg/dL (6-40)
[2018-03-24 06:03] LABS: THYROID STIM HORMONE (HS) 0.375 uIU/ml (0.358-4.75)
[2018-03-24 06:24] LABS: PLATELET SUFFICIENCY LOW (NORMAL); TOTAL CELLS COUNTED 100 #CELLS
[2018-03-24 06:38] LABS: VITAMIN D, 25-HYDROXY 8.5 ng/mL (30-100)
[2018-03-24 08:42] LABS: ABG HCO3 18.1 mmol/l (22-26); ABG O2 SATURATION 98.9 % (95-97); ARTERIAL BLOOD GAS PCO2 31.6 mmHg (35-45); ARTERIAL BLOOD GAS PH 7.373 (7.35-7.45)
[2018-03-24 08:43] LABS: ABG BASE EXCESS -5.9 mmol/L (-2.0-2.0)
[2018-03-24 10:54] LABS: ABG HCO3 16.3 mmol/l (22-26); ABG O2 SATURATION 99.3 % (95-97); ARTERIAL BLOOD GAS PCO2 24.9 mmHg (35-45); ARTERIAL BLOOD GAS PH 7.431 (7.35-7.45)
[2018-03-24 10:55] LABS: ABG BASE EXCESS -6.4 mmol/L (-2.0-2.0)
[2018-03-24 11:20] LABS: ACT PARTIAL THROMBO TIME 24.5 SECONDS (20.8-31.5); INTERNATIONAL NORM RATIO 1.1 (2.0-3.5)
[2018-03-24 16:11] LABS: ACID FAST SPEC PROCESSING Tissue Grinding (.)
[2018-03-25] VITALS: BP 144/80
[2018-03-25 07:27] LABS: BASO % 0.1 % (0.0-1.0); HEMATOCRIT 29.7 % (42.0-52.0); HEMOGLOBIN 10.1 g/dl (14.0-18.0); MEAN CELL VOLUME 106.8 fl (80.0-94.0); MEAN CORPUSCULAR HGB 36.3 pg (27.0-31.0); MEAN PLATELET VOLUME 10.6 fl (9.6-12.3); MONO # 0.6 10*3/uL (0.1-1.0); MONO % 8.8 % (3.0-9.0); NEUT # 5.6 10*3/uL (2.3-7.9); NEUT % 76.8 % (47.0-73.0); PLATELET COUNT AUTOMATED 84 10*3/uL (130-400); RED BLOOD COUNT 2.78 10*6/uL (4.50-5.90); WHITE BLOOD COUNT 7.3 10*3/uL (4.8-10.8)
[2018-03-25 07:50] LABS: BUN 11 mg/dl (7-24); CHLORIDE 112 mmol/L (98-107); SODIUM 142 mmol/L (136-145)
[2018-03-25 08:00] VITALS: BP 110/70
[2018-03-25 12:00] VITALS: BP 127/75
[2018-03-25 15:53] VITALS: BP 116/69
[2018-03-25 20:00] VITALS: BP 111/63
[2018-03-26] VITALS: BP 122/80
[2018-03-26 06:18] LABS: BASO % 0.2 % (0.0-1.0); EOS # 0.1 10*3/uL (0.0-0.4); EOS % 0.8 % (1.0-4.0); HEMATOCRIT 28.5 % (42.0-52.0); HEMOGLOBIN 9.4 g/dl (14.0-18.0); LYMPH # 1.2 10*3/uL (1.3-4.4); LYMPH % 18.7 % (27.0-41.0); MEAN CELL VOLUME 105.9 fl (80.0-94.0); MEAN CORPUSCULAR HGB 34.9 pg (27.0-31.0); MEAN PLATELET VOLUME 11.6 fl (9.6-12.3); MONO # 0.7 10*3/uL (0.1-1.0); MONO % 10.9 % (3.0-9.0); NEUT # 4.2 10*3/uL (2.3-7.9); NEUT % 68.9 % (47.0-73.0); PLATELET COUNT AUTOMATED 85 10*3/uL (130-400); RED BLOOD COUNT 2.69 10*6/uL (4.50-5.90); RED CELL DISTRI WIDTH 13.6 % (0-14.5); WHITE BLOOD COUNT 6.2 10*3/uL (4.8-10.8)
[2018-03-26 06:39] LABS: BUN 7 mg/dl (7-24); CHLORIDE 110 mmol/L (98-107); CREATININE 0.89 mg/dL (0.70-1.30); POTASSIUM 3.7 mmol/L (3.5-5.1); SODIUM 144 mmol/L (136-145)
[2018-03-26 08:00] VITALS: BP 126/78
[2018-03-26 12:00] VITALS: BP 126/78
[2018-03-26 16:00] VITALS: BP 131/74
[2018-03-26 20:00] VITALS: BP 137/72
[2018-03-27] VITALS: BP 140/79
[2018-03-27 07:37] LABS: BASO % 0.4 % (0.0-1.0); EOS # 0.1 10*3/uL (0.0-0.4); EOS % 1.5 % (1.0-4.0); HEMOGLOBIN 9.4 g/dl (14.0-18.0); LYMPH # 0.9 10*3/uL (1.3-4.4); LYMPH % 17.6 % (27.0-41.0); MEAN CELL VOLUME 105.3 fl (80.0-94.0); MEAN CORPUSCULAR HGB 35.3 pg (27.0-31.0); MEAN CORPUSCULAR HGB CONC 33.6 g/dl (33.0-37.0); MEAN PLATELET VOLUME 11.7 fl (9.6-12.3); MONO # 0.5 10*3/uL (0.1-1.0); MONO % 10.3 % (3.0-9.0); NEUT # 3.7 10*3/uL (2.3-7.9); PLATELET COUNT AUTOMATED 92 10*3/uL (130-400); RED BLOOD COUNT 2.66 10*6/uL (4.50-5.90); RED CELL DISTRI WIDTH 13.6 % (0-14.5); WHITE BLOOD COUNT 5.2 10*3/uL (4.8-10.8)
[2018-03-27 07:47] LABS: BUN 7 mg/dl (7-24); CHLORIDE 107 mmol/L (98-107); POTASSIUM 3.6 mmol/L (3.5-5.1); SODIUM 140 mmol/L (136-145)
[2018-03-27 08:00] VITALS: BP 122/72
[2018-03-27 12:00] VITALS: BP 136/62
[2018-03-27 16:00] VITALS: BP 142/85
[2018-03-27 20:00] VITALS: BP 143/79
[2018-03-28] VITALS: BP 137/74
[2018-03-28 08:00] VITALS: BP 121/78
[2018-03-28 12:00] VITALS: BP 120/66
[2018-03-28 16:00] VITALS: BP 122/60
[2018-03-28 20:00] VITALS: BP 128/70
[2018-03-29] VITALS: BP 125/65
[2018-03-29 08:00] VITALS: BP 124/74
[2018-03-29 08:57] LABS: BILIRUBIN NEGATIVE (NEGATIVE); BLOOD 3+ (NEGATIVE); COLOR YELLOW (YELLOW); GLUCOSE NEGATIVE (NEGATIVE); KETONE NEGATIVE (NEGATIVE); LEUKO ESTERASE NEGATIVE (NEGATIVE); NITRITE NEGATIVE (NEGATIVE); PH 5.5 (5.0-9.0); UROBILINOGEN 0.2 E.U./dl (0.2-1.0)
[2018-03-29 09:13] LABS: BACTERIA 2+; CLARITY SL CLOUDY (CLEAR); RBC 51-100 rbc/hpf (0-2)
[2018-03-29 12:00] VITALS: BP 117/72
[2018-03-29 16:00] VITALS: BP 121/69
[2018-03-29 20:00] VITALS: BP 119/73
[2018-03-30] VITALS: BP 140/75
[2018-03-30 12:00] VITALS: BP 108/61
[2018-03-30 16:00] VITALS: BP 108/61
[2018-03-30 20:00] VITALS: BP 120/72
[2018-03-31] VITALS: BP 121/69
[2018-03-31 08:00] VITALS: BP 118/76
[2018-03-31 12:00] VITALS: BP 100/65
[2018-03-31 16:00] VITALS: BP 134/71
[2018-03-31 20:00] VITALS: BP 121/64
[2018-04-01] VITALS: BP 100/66
[2018-04-01 08:00] VITALS: BP 112/64
[2018-04-01] MEDS ORDERED: Vitamin D PO (10:22)
[2018-04-01] MEDS ORDERED: METOPROLOL TAR100 M1 PO (10:22)
[2018-04-01] MEDS ORDERED: FLOMAX0.4 MG PO (10:22)
[2018-04-01] MEDS ORDERED: Ciprofloxacin500 MG PO (10:25)
[2018-04-01 12:00] VITALS: BP 110/73
== END 2018-04-01 13:43 | disposition other institution (70) | DRG 500 ==
LOC: SDC 03:59 → ICCU 15:44 → 4E 03-25 16:58
PROVIDERS: Internal Medicine; Internal Medicine Critical Care Medicine; Podiatrist; Registered Nurse; Student in an Organized Health Care Education/Training Program
PROC: 5A1935Z Respiratory Ventilation, Less than 24 Consecutive Hours (ICD-10-PCS; principal; 2018-03-23)
PROC: 0BH17EZ Insertion of Endotracheal Airway into Trachea, Via Natural or Artificial Opening (ICD-10-PCS; principal; 2018-03-23)
PROC: 0Q8L0ZZ Division of Right Tarsal, Open Approach (ICD-10-PCS; 2018-03-23)
PROC: 0SGK04Z Fusion of Right Tarsometatarsal Joint with Internal Fixation Device, Open Approach (ICD-10-PCS; 2018-03-23)
PROC: 0LSN0ZZ Reposition Right Lower Leg Tendon, Open Approach (ICD-10-PCS; 2018-03-23)
DX: S93.01XA Subluxation of right ankle joint, initial encounter (principal); E43 Unspecified severe protein-calorie malnutrition; J96.01 Acute respiratory failure with hypoxia; R57.1 Hypovolemic shock; I50.32 Chronic diastolic (congestive) heart failure; K56.7 Ileus, unspecified; M24.571 Contracture, right ankle; M19.079 Primary osteoarthritis, unspecified ankle and foot; M20.11 Hallux valgus (acquired), right foot; D53.9 Nutritional anemia, unspecified; D69.6 Thrombocytopenia, unspecified; E87.8 Other disorders of electrolyte and fluid balance, not elsewhere classified; E83.51 Hypocalcemia; E11.9 Type 2 diabetes mellitus without complications; F10.10 Alcohol abuse, uncomplicated; I48.0 Paroxysmal atrial fibrillation; D72.819 Decreased white blood cell count, unspecified; K59.01 Slow transit constipation; E66.01 Morbid (severe) obesity due to excess calories; Z68.32 Body mass index [BMI] 32.0-32.9, adult; Z98.890 Other specified postprocedural states; Z95.0 Presence of cardiac pacemaker; Z91.011 Allergy to milk products; X58.XXXA Exposure to other specified factors, initial encounter; Y93.89 Activity, other specified; Y92.89 Other specified places as the place of occurrence of the external cause; Y99.8 Other external cause status

== ENCOUNTER 2018-06-14 17:10 | Inpatient (IN) | payer MEDICARE ==
[~2018-06-14] VITALS: Ht 172.7 cm; Wt 84.8 kg
--- NOTE | ~2018-06-14 | O ---
[place], [place] OPERATIVE NOTE NAME: CARLOS LEMOS [facility] #: [id number] UNIT #: [id number] ROOM: 516 DOCTOR: DISHA ZABALA DPM BIRTHDATE: [birth year] DOS: 06/14/2018 SURGEON: Disha Zabala DPM. ASSISTANTS: 1. Dr. Catalino Wade, Fellow 2. Andrew Hagan, PGY-1. PREOPERATIVE DIAGNOSES: 1. Joint contracture of distal interphalangeal joint and proximal interphalangeal joint of digits 2. 2. Joint contracture of distal interphalangeal joint and proximal interphalangeal joint of digit number 3. 3. Joint contracture of distal interphalangeal joint and proximal interphalangeal joint of digit number 5. POSTOPERATIVE DIAGNOSES: 1. Joint contracture of distal interphalangeal joint and proximal interphalangeal joint of digits 2. 2. Joint contracture of distal interphalangeal joint and proximal interphalangeal joint of digit number 3. 3. Joint contracture of distal interphalangeal joint and proximal interphalangeal joint of digit number 5. PROCEDURES: 1. Flexor digitorum longus tendon transfer with capsulotomy at the DIPJ and PIPJ 2. 2. Flexor digitorum longus tendon transfer of digit #3 with capsulotomy at PIPJ and DIPJ. 3. Flexor digitorum longus tendon transfer of digit 5 with a capsulotomy at the DIPJ and PIPJ of the right foot. Appropriate site marking was performed and the patient concurred with the proposed surgery as well as the site marking. He was brought in the OR and placed on well-padded OR table where anesthesia achieved. Once the anesthesia was achieved, his right foot and leg were prepped and draped in the usual sterile fashion. At this time, appropriate time-out was performed and everybody in the room concurred with the timeout. Intraoperative fluoroscopy was used throughout the procedure to identify location and fixation. PROCEDURE #1: FDL tendon transfer with capsulotomy at the DIPJ and PIPJ of the second toe of the right, attention directed to the medial aspect of the second toe where a linear incision was made, it was deepened in the same plane using sharp and blunt dissection, avoiding neurovascular structures, carried deep down to the deep structures. At this point in time, the FDL tendon was identified, it was detached distally as far as it possibly could be and then the FDL tendon was pulled as far proximal. Next, the FDB tendon both the medial and lateral slips were tenotomized. Release of contracture and a PIPJ and the DIPJ capsulotomy was performed. A 0.062 K-wire was inserted from the distal phalanx, middle phalanx, and proximal phalanx straightening out the toe into good [place], [place] OPERATIVE NOTE NAME: CARLOS LEMOS UNIT #: [id number] ROOM: [facility] DOCTOR: DISHA ZABALA DPM BIRTHDATE: [birth year] anatomic alignment. The FDL then was transferred to extensor rasmussen under physiological tension and sutured with 4-0 Monocryl and the skin was closed using nylon medial aspect of the second toe. PROCEDURE #2: FDL tendon transfer of the third toe with a DIPJ and PIPJ tenotomy and capsulotomy. Attention was directed to the medial aspect of the third toe where a midline incision was made. It was deepened in the same plane using sharp and blunt dissection, avoiding neurovascular structures carried deep down to the deep tissues and the FDL tendon was identified, it was detached as far distally from the distal phalanx and then traced proximal and the FDB tendon was cut off the middle phalanx releasing the contracture both the medial and lateral slips of the FDB tendon. Next, a capsulotomy was performed at the PIPJ and the DIPJ. Next, a 0.062 K-wire was inserted from the distal phalanx, middle phalanx, and proximal phalanx. Straightening out the toe in anatomical position. The FDL tendon was transferred extensor rasmussen under physiological tension with 4-0 Monocryl, skin was closed with nylon. PROCEDURE #3: Attention was directed to medial aspect of the fifth toe where a linear incision was made, it was deepened in the same plane using sharp and blunt dissection where the nerve action was carried deep down to the soft tissues and at this time FDL tendon was identified. The FDL tendon was identified, detached from distal phalanx and at this point in time, the remaining soft tissues were detached from the middle phalanx as well as tendon and a capsulotomy was performed at the PIPJ and DIPJ of the fifth toe. At this point, a 0.062 K-wire was inserted into the distal phalanx, middle phalanx, and proximal phalanx stabilizing the toe in good anatomic alignment. At this point in time, the FDL was transferred extensor with 4-0 Monocryl. Skin was closed with nylon. Surgical wounds were dressed with Betadine-soaked Adaptic, 4 x 4s, Livia in a sterile compressive fashion. Good cap refill time was noted at all ends of all digits of 2, 3, and 5 of the right. A soft dressing was applied. Surgical glue was applied. He tolerated the procedure and anesthesia well and left the OR with vital signs stable and vascular status intact. He had a pop block prior to surgery from anesthesia, and he had no pain after surgery, and he was alert and oriented at the time of surgery. [place], [place] OPERATIVE NOTE NAME: CARLOS LEMOS UNIT #: [id number] ROOM: 516 DOCTOR: DISHA ZABALA DPM BIRTHDATE: [birth year] DISHA ZABALA DPM CM:OPRECORD:OPERATIVE NOTE 09 0219 DISHA ZABALA DPM 06/29/18 0947 interface
--- NOTE | ~2018-06-14 | EKG ---
[place], [place] ELECTROCARDIOGRAM REPORT NAME: CARLOS LEMOS UNIT #: [id number] ROOM: 516 DOCTOR: SOFIE DRAFT REPORT BIRTHDATE: [address] [facility] Test Date: 2018-06-15 Test Time: 02:00:59 Pat Name: CARLOS LEMOS Department: Room: [facility] 1 Gender: M [employer] Forming Equipment Operator: Diana Talbot : 1945 Requested By: HEMANTH HERNANDEZ Order Number: [id number] Reading MD: Eyal Kirk MD Measurements Intervals [place] Rate: 75 P: [place]: QRS: 38 QRSD: 83 T: 230 QT: 421 QTc: 471 Interpretive Statements Afib/flut and V-paced complexes No further rhythm analysis attempted due to paced rhythm Repol abnrm, prob ischemia, anterolateral lds Compared to earlier ECG this date Ventricular paced beats are now seen Electronically Signed On 06-15-2018 17:30:28 PST by Eyal Kirk MD CM:EKGRPT:ELECTROCARDIOGRAM REPORT 0200 1730 HEMANTH SANTANA DRAFT REPORT HEMANTH HERNANDEZ DO
--- NOTE | ~2018-06-14 | PR ---
[place], [place] PROGRESS NOTE [facility] [id number] UNIT #: [id number] ROOM: 516 DOCTOR: ANOOP PEREZ DPM BIRTHDATE: [birth year] DOS: 06/17/2018 SUBJECTIVE: The patient is seen today for followup surgery. He states he is doing well. Denies fever, chills, or shortness of breath. He states overall no complaints at this time. OBJECTIVE: Neurovascular status is grossly intact. Foot is bandaged. No strikethrough drainage through the bandage. No problems at this time. ASSESSMENT: Status-post surgery right foot. PLAN: The patient can be discharged from Podiatry standpoint. Follow up in the office next Wednesday with Dr. Eldridge, continue weightbearing in the Cam walker as previously instructed. ANOOP PEREZ DPM CM:PNTRANS [id number] ANOOP PEREZ DPM 06/18/18 0101 interface
--- NOTE | ~2018-06-14 | EKG ---
[place], [place] ELECTROCARDIOGRAM REPORT NAME: CARLOS LEMOS UNIT #: [id number] ROOM: 516 DOCTOR: SOFIE DRAFT REPORT BIRTHDATE: [birth year] [facility] Test Date: 2018-06-14 Test Time: 23:22:05 Pat Name: CARLOS LEMOS Department: Room: [facility] 1 Gender: M Mercury Washer: Diana Talbot : 1945 Requested By: HEMANTH HERNANDEZ Order Number: [id number] Reading MD: Eyal Kirk MD Measurements Intervals [place] Rate: 81 P: [place]: QRS: 27 QRSD: 101 T: 213 QT: 398 QTc: 462 Interpretive Statements Atrial fibrillation Abnormal R-wave progression, early transition Repol abnrm, prob ischemia, anterolateral lds No change from earlier ECG this date Electronically Signed On 06-15-2018 17:25:49 PST by Eyal Kirk MD CM:EKGRPT:ELECTROCARDIOGRAM REPORT 1725 HEMANTH SANTANA DRAFT REPORT HEMANTH HERNANDEZ DO
--- NOTE | ~2018-06-14 | WRIGHTHP ---
[place], [place] PATIENT HISTORY AND PHYSICAL EXAM NAME: CARLOS LEMOS [facility] #: [id number] UNIT #: [id number] ROOM: 516 DOCTOR: DISHA ZABALA DPM BIRTHDATE: [birth year] DOS: 06/14/2018 HISTORY OF PRESENT ILLNESS: He has significant contractures at the DIPJ, PIPJ of the digits 2, 3 and 5. I saw the patient in the preop holding area and discussed pros, cons, risks and benefits, overcorrection, numbness, recurrence, infection, loss of toes, neurovascular injury, artery or vein injury, and worsening. Patient is seen at [place] [facility] for correction of significant joint contractures of digits 2, 3 and 5 on the right. He understands the pros, cons, and the risks and benefits, he agreed with the appropriate site marking, he agreed with the perioperative management and postoperative protocols. PHYSICAL EXAMINATION: EXTREMITIES: Lower extremity physical exam; vascular, he has a noninvasive vascular study. Exam demonstrated good perfusion to right lower extremity that should indicate it should heal adequately. NEUROLOGICAL: He has a loss of protective sensation secondary to diabetic peripheral neuropathy. MUSCULOSKELETAL: He has a significant sagittal plane contracture of digits 2, 3 and 5, all on the right. ORTHOPEDIC: Hammertoe deformity 2, 3 and 5 of the right foot. DISHA ZABALA DPM CM:HISPHYS:PATIENT HISTORY AND PHYSICAL EXAMINATION 09 [id number] DISHA ZABALA DPM 06/16/18 0845 interface
--- NOTE | ~2018-06-14 | EKG ---
[place], [place] ELECTROCARDIOGRAM REPORT NAME: CARLOS LEMOS UNIT #: [id number] ROOM: 516 DOCTOR: SOFIE DRAFT REPORT BIRTHDATE: [birth year] [facility] Test Date: 2018-06-14 Test Time: 19:25:02 Pat Name: CARLOS LEMOS Department: Room: [facility] 1 Gender: M Candy Mixer: : 1945 Requested By: HEMANTH HERNANDEZ Order Number: [id number] Reading MD: Lee Veronica MD Measurements Intervals [place] Rate: 82 P: [place]: QRS: 28 QRSD: 85 T: 213 QT: 404 QTc: 472 Interpretive Statements Atrial fibrillation Abnormal R-wave progression, early transition Repol abnrm, prob ischemia, anterolateral lds Compared to ECG 03/23/2018 21:44:55 Possible ischemia now present PT WAS ADMITTED Electronically Signed On 06-15-2018 7:42:56 PST by Lee Veronica MD CM:EKGRPT:ELECTROCARDIOGRAM REPORT 24 0742 HEMANTH SANTANA DRAFT REPORT HEMANTH HERNANDEZ DO
[~2018-06-14 17:10] MED LIST changes: -DOXYCYCLINE100 M3 PO; -LOPRESSOR100 M1 PO
[2018-06-14 17:30] VITALS: BP 92/64
[2018-06-14] MEDS ORDERED: LOPRESSOR100 M1 PO (18:37)
[2018-06-14 20:00] VITALS: BP 113/67
[2018-06-15] VITALS (8 sets, daily range): BP systolic 91–130; BP diastolic 57–83
[2018-06-15 07:10] LABS: BASO % 0.5 % (0.0-1.0); EOS # 0.1 10*3/uL (0.0-0.4); EOS % 3.4 % (1.0-4.0); HEMOGLOBIN 12.4 g/dl (14.0-18.0); LYMPH # 1.1 10*3/uL (1.3-4.4); MEAN CELL VOLUME 93.1 fl (80.0-94.0); MEAN CORPUSCULAR HGB 29.6 pg (27.0-31.0); MEAN CORPUSCULAR HGB CONC 31.8 g/dl (33.0-37.0); MONO # 0.6 10*3/uL (0.1-1.0); MONO % 14.7 % (3.0-9.0); NEUT # 2.2 10*3/uL (2.3-7.9); NEUT % 54.2 % (47.0-73.0); PLATELET COUNT AUTOMATED 174 10*3/uL (130-400); RED BLOOD COUNT 4.19 10*6/uL (4.50-5.90); RED CELL DISTRI WIDTH 15.7 % (0-14.5); WHITE BLOOD COUNT 4.1 10*3/uL (4.8-10.8)
[2018-06-15 07:23] LABS: ALBUMIN 3.2 gm/dl (3.1-4.5); BUN 20 mg/dl (7-24); CHLORIDE 105 mmol/L (98-107); POTASSIUM 4.5 mmol/L (3.5-5.1); SODIUM 140 mmol/L (136-145)
[2018-06-15 07:34] LABS: ALKALINE PHOSPHATASE 140 U/L (45-117); CREATININE 1.11 mg/dL (0.70-1.30); PHOSPHOROUS 3.4 mg/dL (2.5-4.9); SGOT/AST 18 IU/L (3-35); SGPT/ALT 19 U/L (12-78); TOTAL PROTEIN 6.8 gm/dL (6.4-8.2)
[2018-06-15] MEDS ORDERED: Lopressor25 MG PO (09:04)
[2018-06-15] MEDS ORDERED: DOXYCYCLINE100 M3 PO (19:09)
[2018-06-16] VITALS: BP 95/58
[2018-06-16 08:00] VITALS: BP 120/80
[2018-06-16 12:00] VITALS: BP 109/72
[2018-06-16 16:00] VITALS: BP 116/72
[2018-06-16 20:00] VITALS: BP 143/92
[2018-06-17] VITALS: BP 99/63
[2018-06-17 06:58] LABS: BASO % 0.1 % (0.0-1.0); EOS % 0.4 % (1.0-4.0); HEMATOCRIT 37.2 % (42.0-52.0); HEMOGLOBIN 11.9 g/dl (14.0-18.0); LYMPH # 1.2 10*3/uL (1.3-4.4); LYMPH % 15.4 % (27.0-41.0); MEAN CELL VOLUME 93.2 fl (80.0-94.0); MEAN CORPUSCULAR HGB 29.8 pg (27.0-31.0); MEAN PLATELET VOLUME 10.6 fl (9.6-12.3); MONO # 0.6 10*3/uL (0.1-1.0); MONO % 8.2 % (3.0-9.0); NEUT # 5.9 10*3/uL (2.3-7.9); NEUT % 75.5 % (47.0-73.0); PLATELET COUNT AUTOMATED 154 10*3/uL (130-400); RED BLOOD COUNT 3.99 10*6/uL (4.50-5.90); RED CELL DISTRI WIDTH 15.7 % (0-14.5); WHITE BLOOD COUNT 7.8 10*3/uL (4.8-10.8)
[2018-06-17 07:26] LABS: BUN 13 mg/dl (7-24); CHLORIDE 108 mmol/L (98-107); POTASSIUM 4.1 mmol/L (3.5-5.1); SODIUM 143 mmol/L (136-145)
[2018-06-17 07:27] LABS: CREATININE 0.93 mg/dL (0.70-1.30)
[2018-06-17 08:00] VITALS: BP 120/80
== END 2018-06-17 11:45 | disposition home or self-care (01) | DRG 500 ==
LOC: 5E 17:10
PROVIDERS: Internal Medicine; Internal Medicine Cardiovascular Disease; ADMIT Internal Medicine
PROC: 0SNP0ZZ Release Right Toe Phalangeal Joint, Open Approach (ICD-10-PCS; principal; 2018-06-14)
PROC: 0SNP0ZZ Release Right Toe Phalangeal Joint, Open Approach (ICD-10-PCS; 2018-06-14)
PROC: 0SNP0ZZ Release Right Toe Phalangeal Joint, Open Approach (ICD-10-PCS; 2018-06-14)
PROC: 0LXV0ZZ Transfer Right Foot Tendon, Open Approach (ICD-10-PCS; 2018-06-14)
PROC: 0LXV0ZZ Transfer Right Foot Tendon, Open Approach (ICD-10-PCS; 2018-06-14)
PROC: 0LXV0ZZ Transfer Right Foot Tendon, Open Approach (ICD-10-PCS; 2018-06-14)
DX: M24.574 Contracture, right foot (principal); N17.0 Acute kidney failure with tubular necrosis; E43 Unspecified severe protein-calorie malnutrition; R94.31 Abnormal electrocardiogram [ECG] [EKG]; D64.9 Anemia, unspecified; I48.2 Chronic atrial fibrillation; I10 Essential (primary) hypertension; F10.10 Alcohol abuse, uncomplicated; K59.01 Slow transit constipation; E55.9 Vitamin D deficiency, unspecified; D72.810 Lymphocytopenia; E11.65 Type 2 diabetes mellitus with hyperglycemia; Z95.0 Presence of cardiac pacemaker; Z89.429 Acquired absence of other toe(s), unspecified side; Z87.891 Personal history of nicotine dependence; Z80.42 Family history of malignant neoplasm of prostate; Z80.1 Family history of malignant neoplasm of trachea, bronchus and lung; Z79.82 Long term (current) use of aspirin; Z79.899 Other long term (current) drug therapy; Z68.28 Body mass index [BMI] 28.0-28.9, adult

== ENCOUNTER → 2018-06-14 | Outpatient (CLI) | payer MEDICARE ==
[~2018-06-14] MED LIST changes: +Ciprofloxacin500 MG PO; +DOXYCYCLINE100 M3 PO; +FLOMAX0.4 MG PO; +LOPRESSOR100 M1 PO; +METOPROLOL TAR100 M1 PO; +Vitamin D PO
--- NOTE | ~2018-06-14 | EKG ---
[place], [place] ELECTROCARDIOGRAM REPORT NAME: CARLOS LEMOS UNIT #: [id number] ROOM: DOCTOR: EPIPHANY DRAFT REPORT BIRTHDATE: [birth year] [facility] Test Date: 2018-06-14 Test Time: 15:09:03 Pat Name: CARLOS LEMOS Department: Room: Gender: Procedures Analyst: : 1945 Requested By: DISHA ZABALA Order Number: [id number] Reading MD: Measurements Intervals [place] Rate: 87 P: [place]: QRS: 26 QRSD: 82 T: 208 QT: 373 QTc: 449 Interpretive Statements Atrial fibrillation Abnormal R-wave progression, early transition Repol abnrm, prob ischemia, anterolateral lds Compared to ECG 03/23/2018 21:44:55 Possible ischemia now present CM:EKGRPT:ELECTROCARDIOGRAM REPORT 1509 1216 DISHA ZABALA DPM EPIPHANY DRAFT REPORT DISHA ZABALA DPM
== END | disposition home or self-care (01) ==
LOC: RESCLI 02:38
DX: E78.00 Pure hypercholesterolemia, unspecified (principal); I48.2 Chronic atrial fibrillation; M20.41 Other hammer toe(s) (acquired), right foot; I11.0 Hypertensive heart disease with heart failure; I50.9 Heart failure, unspecified; R94.31 Abnormal electrocardiogram [ECG] [EKG]; H40.9 Unspecified glaucoma; E11.9 Type 2 diabetes mellitus without complications; M19.90 Unspecified osteoarthritis, unspecified site; Z87.891 Personal history of nicotine dependence; Z88.8 Allergy status to other drugs, medicaments and biological substances; Z79.899 Other long term (current) drug therapy